=== PATIENT | female | born 1980 | race Caucasian/White ===

== ENCOUNTER → 2021-03-15 | Outpatient (CLI) | payer OTHER, BC ==
[~2021-03-15] MED LIST: AZITHROMYCIN250 MG; CIPRO250 MG/5 M PO; CLINDAMYCIN HC150 MG PO; GENTAMICIN OPTH OU; HYDROCODON-ACE1 EAC8 PO; MEDROL4 MG/DOSE-; MONONESSA1 EACH PO; PYRIDIUM200 MG PO
== END ==
LOC: VACCPMC 14:47
DX: Z23 Encounter for immunization (principal); Z20.822 Contact with and (suspected) exposure to COVID-19

== ENCOUNTER → 2021-10-22 | Outpatient (CLI) | payer BC | LOC: LAB 14:43 | PROVIDERS: ATTEND Obstetrics & Gynecology | DX: L68.0 Hirsutism (principal); R23.2 Flushing | CPT/HCPCS: 82627; 83001; 83498 ==